=== PATIENT | male | born 1955 | race American Indian/Alaskan Native ===

== ENCOUNTER 2019-01-09 13:37 | Observation (INO) | payer MEDICAID ==
--- NOTE | 2019-01-09 13:56 | Event Note ---
ED Screening Note Date of service: 01/09/19 Time: 13:48 ED Screening Note: Patient reports black and loose stool with abvious blood in stool today x 2 . Cirrhosis of liver and on transplant list. Denies N/V. Abdominal pain generalized queezy pain. 04/26. No vomiting blood. Last EGD at [facility] and reports next endoscopy is 1 year. Colonoscopy 2016 and was normal. NOn alcoholic liver disease. No alcohol or etoh in 24 years. No h/O paracenthesis. No Fever or chill. No urinary symptoms. GI Lan Floyd at [facility] who is part of transplant team Abdomen: obese, NL BS. NTTP VSS AFEB This initial assessment/diagnostic orders/clinical plan/treatment(s) is/are subject to change based on patients health status, clinical progression and re- assessment by fellow clinical providers in the ED. Further treatment and workup at subsequent clinical providers discretion. Patient/guardian urged not to elope from the ED as their condition may be serious if not clinically assessed and managed. Initial orders include: protocol for GI bleed
[2019-01-09 14:53] LABS: Basophils # (Auto) 0.1 K/mm3 (0.0-0.1); Basophils % (Auto) 0.7 % (0.0-1.8); Eosinophils # (Auto) 0.2 K/mm3 (0.0-0.4); Eosinophils % (Auto) 2.1 % (0.0-4.3); Lymphocytes # (Auto) 0.7 K/mm3 (1.2-5.4); Mean Corpuscular HGB Conc 29 % (32-34); Monocytes # (Auto) 0.7 K/mm3 (0.0-0.8); Monocytes % (Auto) 8.2 % (0.0-7.3); Platelet Count 304 K/mm3 (140-440); Red Blood Count 5.44 M/mm3 (3.65-5.03); Red Cell Distribution Width 19.7 % (13.2-15.2)
[2019-01-09 14:58] LABS: Hematocrit 30.8 % (35.5-45.6); Mean Corpuscular Volume 57 fl (84-94)
[2019-01-09 14:59] LABS: Alanine Aminotransferase 11 units/L (7-56); Albumin 3.9 g/dL (3.9-5); BUN/Creatinine Ratio 12; Blood Urea Nitrogen 14 mg/dL (9-20); Calcium 8.5 mg/dL (8.4-10.2); Hemolysis Index 1
[2019-01-09 15:03] LABS: INR 1.1 (0.87-1.13); Partial Thromboplastin Time 30.5 Sec. (24.2-36.6)
[2019-01-09 16:33] LABS: Bilirubin,Urine NEG (Negative); Blood,Urine NEG (Negative); Color,Urine Yellow (Yellow); Mucus,Urine FEW /HPF; Protein,Urine <15 mg/dL mg/dL (Negative)
--- NOTE | 2019-01-09 16:34 | Emergency Department Report ---
ED GI Bleed HPI - General Chief complaint: GI Bleed Stated complaint: GI BLEED Time Seen by Provider: 01/09/19 13:47 Source: patient Mode of arrival: Ambulatory Limitations: No Limitations - History of Present Illness MD complaint: melena -: Gradual, days(s) Radiation: none Severity scale (0 -10): 0 Quality: painless Consistency: intermittent Improves with: none Worsens with: none Context: history of GI bleed (Reports followed by GI at [facility] and that he is on the liver transplant list. Reports Dr. Lan MCKEON performed an EGD in approximately 2010 to cauterize a bleed with similar presentation. ), liver disease (Reports hx of cirrhosis on the transplant list at [facility]) Associated Symptoms: denies: abdominal pain, nausea, vomiting, epistaxis, fever/chills, headaches, loss of appetite, malaise, easy bruising, rash, other bleeding, shortness of breath, syncope, weakness - Related Data Allergies Allergy/AdvReac Type Severity Reaction Status Date / Time No Known Allergies Allergy Unverified 01/09/19 15:04 ED Review of Systems ROS: Stated complaint: GI BLEED Other details as noted in HPI Other: GENERAL: No weight change, fatigue, fever, chills, or night sweats SKIN: No changes in skin or hair, no itching, no rashes, no jaundice HEAD: No trauma, headache, or visual changes EYES: No blurriness, tearing, itching, acute visual loss, conjunctival discoloration, or scleral icterus EARS: No hearing loss, tinnitus, vertigo, or earache NOSE: No rhinorrhea, stuffiness, sneezing, itching, or epistaxis MOUTH: No bleeding gums, hoarseness, sore throat, or swelling CARDIAC: No new murmur, chest pain, palpitations, dyspnea on exertion, orthopnea, PND, or edema RESPIRATORY: No shortness of breath, wheeze, cough, sputum production, hemoptysis, pneumonia, asthma, bronchitis, or emphysema GI: Melena. No change in appetite, nausea, vomiting, dysphagia, diarrhea, constipation, hematemesis, hematochezia, or abdominal pain URINARY: No frequency, urgency, polyuria, dysuria, hematuria, or incontinence MUSCULOSKELETAL: No muscle weakness, joint stiffness, decrease in range of motion, redness, swelling NEUROLOGIC: No headache, syncope, loss of sensation, numbness, tingling, tremors, weakness, paralysis, seizures HEMATOLOGIC: No anemia, easy bruising, bleeding, petechiae, or purpura ENDOCRINE: No hot or cold intolerance, sweating, polyuria, polydipsia or, polyphagia no thyroid problems ED Past Medical Hx - Past Medical History Previous Medical History?: Yes Hx Liver Disease: Yes (cirrhosis of liver) - Surgical History Past Surgical History?: Yes Additional Surgical History: Abdominal hernia repair - Social History Smoking Status: Former Smoker Substance Use Type: Prescribed, Other ED Physical Exam - General Limitations: No Limitations - Other Other exam information: GENERAL: Patient in no acute distress HEAD: Normocephalic, atraumatic EYES: PERRLA, EOM intact, no scleral icterus, no conjunctival hemorrhage, visual flower and acuity wnl NOSE: No tenderness, discharge, sinus tenderness MOUTH: No erythema, bleeding, exudate HEART: Regular rate and rhythm, no murmur, S1-S2 are auscultated, no edema, pulses are symmetric LUNGS: No respiratory distress. Bilateral breath sounds, No tachypnea, No retractions, No wheezing, rales, rhonchi ABDOMEN: Normal bowel sounds, abdomen soft, no tenderness, no rebound, no guarding, no distention, no masses, no CVA tenderness MUSCULOSKELETAL: Normal joint range of motion, no redness, no swelling, no tenderness NEUROLOGIC: GCS 15, Alert and Oriented x3, Cranial nerves intact, normal sensation, normal strength, no cerebellar deficit, NIHSS 0 SKIN: Skin is warm and dry, no wounds, no rashes ED Course Vital Signs 01/09/19 01/09/19 01/09/19 13:40 16:25 18:37 Temperature 98.4 F Pulse Rate 70 70 66 Respiratory 22 20 19 Rate Blood Pressure 149/79 Blood Pressure 138/70 150/89 [Left] O2 Sat by Pulse 97 97 96 Oximetry ED Medical Decision Making - Lab Data Result diagrams: 01/09/19 14:03 01/09/19 14:03 Laboratory Results - last 24 hr 01/09/19 01/09/19 01/09/19 14:03 14:03 14:03 WBC 8.1 RBC 5.44 H Hgb 9.0 L Hct 30.8 L MCV 57 L MCH 17 L MCHC 29 L RDW 19.7 H Plt Count 304 Lymph % (Auto) 9.0 L [place] % (Auto) 8.2 H Eos % (Auto) 2.1 Baso % (Auto) 0.7 Lymph # 0.7 L [place] # 0.7 Eos # 0.2 Baso # 0.1 Seg Neutrophils % 80.0 H Seg Neutrophils # 6.5 PT 14.1 INR 1.10 APTT 30.5 Sodium 139 Potassium 4.4 Chloride 104.5 Carbon Dioxide 23 Anion Gap 16 BUN 14 Creatinine 1.2 Estimated GFR > 60 BUN/Creatinine Ratio 12 Glucose 166 H Calcium 8.5 Magnesium 1.70 Total Bilirubin 0.30 AST 14 ALT 11 Alkaline Phosphatase 147 H Ammonia Total Protein 6.7 Albumin 3.9 Albumin/Globulin Ratio 1.4 Lipase 62 H Urine Color Urine Turbidity Urine pH Ur Specific [place] Urine Protein Urine Glucose (UA) Urine Ketones Urine Blood Urine Nitrite Urine Bilirubin Urine Urobilinogen Ur Leukocyte Esterase Urine WBC (Auto) Urine RBC (Auto) U Epithel Cells (Auto) Urine Mucus Blood Type Antibody Screen 01/09/19 01/09/19 01/09/19 14:03 14:03 16:00 WBC RBC Hgb Hct MCV MCH MCHC RDW Plt Count Lymph % (Auto) [place] % (Auto) Eos % (Auto) Baso % (Auto) Lymph # [place] # Eos # Baso # Seg Neutrophils % Seg Neutrophils # PT INR APTT Sodium Potassium Chloride Carbon Dioxide Anion Gap BUN Creatinine Estimated GFR BUN/Creatinine Ratio Glucose Calcium Magnesium Total Bilirubin AST ALT Alkaline Phosphatase Ammonia 34.0 Total Protein Albumin Albumin/Globulin Ratio Lipase Urine Color Yellow Urine Turbidity Clear Urine pH 5.0 Ur Specific [place] 1.025 Urine Protein <15 mg/dl Urine Glucose (UA) Neg Urine Ketones Neg Urine Blood Neg Urine Nitrite Neg Urine Bilirubin Neg Urine Urobilinogen 4.0 Ur Leukocyte Esterase Sm Urine WBC (Auto) 25.0 H Urine RBC (Auto) 5.0 U Epithel Cells (Auto) < 1.0 Urine Mucus Few Blood Type B POSITIVE Antibody Screen Negative - Medical Decision Making At 1729 Dr. Puga [facility] call back updated with results. Reports there are no ICU beds available at [facility] and would prefer this patient be in an ICU bed. Recommends patient can stay at [facility] for GI evaluation, and [facility] can be available for consultation if there are any further concerns after [facility] initial GI evaluation. Patient comfortable. Reports symptom improvement. Updated with results. Plan admit for further evaluation. Hospitalist updated and accepts admission. Critical care attestation.: If time is entered above; I have spent that time in minutes in the direct care of this critically ill patient, excluding procedure time. ED Disposition Clinical Impression: GI bleed Qualifiers: GI bleed type/associated pathology: unspecified gastrointestinal hemorrhage type Qualified Code(s): K92.2 - Gastrointestinal hemorrhage, unspecified Disposition: [id number] OP ADMIT IP TO THIS HOSP Is pt being admited?: Yes Condition: Stable
[2019-01-09] MEDS ORDERED: ACETAMINOPHEN 325 MG TAB PO PRN ×2 (18:15→21:44)
[2019-01-09] MEDS ORDERED: ONDANSETRON 4 MG/2 ML INJ IV PRN ×2 (18:15→21:44)
[2019-01-09] MEDS ORDERED: HYDROmorphone 1 MG/1 ML INJ IV PRN (21:44)
--- NOTE | 2019-01-09 22:00 | History and Physical Report ---
History of Present Illness Date of examination: 01/09/19 Date of admission: 01/09/19 18:15 Chief complaint: Black stools since yesterday History of present illness: 63 y/o AAM with pmh significant for DAVIS Esophageal varices ,Hx of GI bleed and obesity on Liver transplant list at [place] comes ior Black tarry stools since last night. Feels weak and lightheded. No fever or chills Denies: abdominal pain, nausea, vomiting, epistaxis, headaches, loss of appetite, malaise, easy bruising, rash, other bleeding, shortness of breath, syncope, weakness Past Medical History Previous Medical History?: Yes Hx Liver Disease: Yes (cirrhosis of liver) Surgical History Past Surgical History?: Yes Additional Surgical History: Abdominal hernia repair Social History Smoking Status: Former Smoker Substance Use Type: Prescribed, Other Family Hx Htn Review of Systems ROS: Stated complaint: GI BLEED Other details as noted in HPI Other: GENERAL: No weight change, fatigue, fever, chills, or night sweats SKIN: No changes in skin or hair, no itching, no rashes, no jaundice HEAD: No trauma, headache, or visual changes EYES: No blurriness, tearing, itching, acute visual loss, conjunctival discoloration, or scleral icterus EARS: No hearing loss, tinnitus, vertigo, or earache NOSE: No rhinorrhea, stuffiness, sneezing, itching, or epistaxis MOUTH: No bleeding gums, hoarseness, sore throat, or swelling CARDIAC: No new murmur, chest pain, palpitations, dyspnea on exertion, orthopnea, PND, or edema RESPIRATORY: No shortness of breath, wheeze, cough, sputum production, hemoptysis, pneumonia, asthma, bronchitis, or emphysema GI: Melena. No change in appetite, nausea, vomiting, dysphagia, diarrhea, constipation, hematemesis, hematochezia, or abdominal pain URINARY: No frequency, urgency, polyuria, dysuria, hematuria, or incontinence MUSCULOSKELETAL: No muscle weakness, joint stiffness, decrease in range of motion, redness, swelling NEUROLOGIC: No headache, syncope, loss of sensation, numbness, tingling, tremors, weakness, paralysis, seizures HEMATOLOGIC: No anemia, easy bruising, bleeding, petechiae, or purpura ENDOCRINE: No hot or cold intolerance, sweating, polyuria, polydipsia or, polyphagia no thyroid problems Medications and Allergies Allergies Allergy/AdvReac Type Severity Reaction Status Date / Time No Known Allergies Allergy Unverified 01/09/19 15:04 Home Medications Medication Instructions Recorded Confirmed Last Taken Type AtorvaSTATin [Lipitor] 40 mg PO QHS 01/09/19 01/09/19 Unknown History Docusate Sodium [Stool Softener] 50 mg PO QDAY 01/09/19 01/09/19 Unknown History Pantoprazole [Protonix] 40 mg PO QDAY 01/09/19 01/09/19 Unknown History Tenofovir Alafenamide Fumarate 25 mg PO QDAY 01/09/19 01/09/19 Unknown History [Vemlidy] azaTHIOprine [Imuran] 50 mg PO DAILY 01/09/19 01/09/19 Unknown History Active Meds: Active Medications Acetaminophen (Tylenol) 650 mg PO Q4H PRN PRN Reason: Pain MILD(1-3)/Fever >100.5/KURTZ Acetaminophen (Tylenol) 650 mg PO Q4H PRN PRN Reason: Pain MILD(1-3)/Fever >100.5/KURTZ Hydromorphone HCl (Dilaudid) 0.5 mg IV Q3H PRN PRN Reason: Pain , Severe (7-10) Pantoprazole Sodium 80 mg/ (Sodium Chloride) 100 mls @ 10 mls/hr IV DIRECT ROLANDO Ondansetron HCl (Zofran) 4 mg IV Q8H PRN PRN Reason: Nausea And Vomiting Ondansetron HCl (Zofran) 4 mg IV Q8H PRN PRN Reason: Nausea And Vomiting Sodium Chloride (Sodium Chloride Flush Syringe 10 Ml) 10 ml IV BID ROLANDO Sodium Chloride (Sodium Chloride Flush Syringe 10 Ml) 10 ml IV PRN PRN PRN Reason: LINE FLUSH Sodium Chloride (Sodium Chloride Flush Syringe 10 Ml) 10 ml IV BID ROLANDO Sodium Chloride (Sodium Chloride Flush Syringe 10 Ml) 10 ml IV PRN PRN PRN Reason: LINE FLUSH Exam - Constitutional Vitals: Temp Pulse Resp BP Pulse Ox 98.4 F 65 16 153/93 96 01/09/19 20:18 01/09/19 20:18 01/09/19 20:18 01/09/19 20:18 01/09/19 20:18 General appearance: Present: no acute distress, well-nourished - EENT Eyes: Present: PERRL ENT: hearing intact, clear oral mucosa - Neck Neck: Present: supple, normal ROM - Respiratory Respiratory effort: normal Respiratory: bilateral: CTA - Cardiovascular Heart rate: 88 Rhythm: regular Heart Sounds: Present: S1 & S2. Absent: rub, click - Extremities Extremities: no ischemia, pulses intact, pulses symmetrical, No edema Peripheral Pulses: within normal limits - Abdominal General gastrointestinal: Present: soft, non-tender, distended (Sec to obesity), normal bowel sounds Male genitourinary: Present: normal - Integumentary Integumentary: Present: clear, warm, dry - Musculoskeletal Musculoskeletal: gait normal, strength equal bilaterally - Psychiatric Psychiatric: appropriate mood/affect, intact judgment & insight - Neurologic Neurologic: CNII-XII intact, moves all extremities Results - Labs CBC & Chem 7: 01/09/19 22:54 01/09/19 14:03 Labs: Laboratory Last Values WBC 8.1 K/mm3 (4.5-11.0) 01/09/19 14:03 RBC 5.44 M/mm3 (3.65-5.03) H 01/09/19 14:03 Hgb 9.0 gm/dl (11.8-15.2) L 01/09/19 14:03 Hct 30.8 % (35.5-45.6) L 01/09/19 14:03 MCV 57 fl (84-94) L 01/09/19 14:03 MCH 17 pg (28-32) L 01/09/19 14:03 MCHC 29 % (32-34) L 01/09/19 14:03 RDW 19.7 % (13.2-15.2) H 01/09/19 14:03 Plt Count 304 K/mm3 (140-440) 01/09/19 14:03 Lymph % (Auto) 9.0 % (13.4-35.0) L 01/09/19 14:03 [place] % (Auto) 8.2 % (0.0-7.3) H 01/09/19 14:03 Eos % (Auto) 2.1 % (0.0-4.3) 01/09/19 14:03 Baso % (Auto) 0.7 % (0.0-1.8) 01/09/19 14:03 Lymph # 0.7 K/mm3 (1.2-5.4) L 01/09/19 14:03 [place] # 0.7 K/mm3 (0.0-0.8) 01/09/19 14:03 Eos # 0.2 K/mm3 (0.0-0.4) 01/09/19 14:03 Baso # 0.1 K/mm3 (0.0-0.1) 01/09/19 14:03 Seg Neutrophils % 80.0 % (40.0-70.0) H 01/09/19 14:03 Seg Neutrophils # 6.5 K/mm3 (1.8-7.7) 01/09/19 14:03 PT 14.1 Sec. (12.2-14.9) 01/09/19 14:03 INR 1.10 (0.87-1.13) 01/09/19 14:03 APTT 30.5 Sec. (24.2-36.6) 01/09/19 14:03 Sodium 139 mmol/L (137-145) 01/09/19 14:03 Potassium 4.4 mmol/L (3.6-5.0) 01/09/19 14:03 Chloride 104.5 mmol/L (98-107) 01/09/19 14:03 Carbon Dioxide 23 mmol/L (22-30) 01/09/19 14:03 Anion Gap 16 mmol/L 01/09/19 14:03 BUN 14 mg/dL (9-20) 01/09/19 14:03 Creatinine 1.2 mg/dL (0.8-1.5) 01/09/19 14:03 Estimated GFR > 60 ml/min 01/09/19 14:03 BUN/Creatinine Ratio 12 % 01/09/19 14:03 Glucose 166 mg/dL (75-100) H 01/09/19 14:03 Calcium 8.5 mg/dL (8.4-10.2) 01/09/19 14:03 Magnesium 1.70 mg/dL (1.7-2.3) 01/09/19 14:03 Total Bilirubin 0.30 mg/dL (0.1-1.2) 01/09/19 14:03 AST 14 units/L (5-40) 01/09/19 14:03 ALT 11 units/L (7-56) 01/09/19 14:03 Alkaline Phosphatase 147 units/L (35-129) H 01/09/19 14:03 Ammonia 34.0 umol/L (25-60) 01/09/19 14:03 Total Protein 6.7 g/dL (6.3-8.2) 01/09/19 14:03 Albumin 3.9 g/dL (3.9-5) 01/09/19 14:03 Albumin/Globulin Ratio 1.4 % 01/09/19 14:03 Lipase 62 units/L (13-60) H 01/09/19 14:03 Urine Color Yellow (Yellow) 01/09/19 16:00 Urine Turbidity Clear (Clear) 01/09/19 16:00 Urine pH 5.0 (5.0-7.0) 01/09/19 16:00 Ur Specific [place] 1.025 (1.003-1.030) 01/09/19 16:00 Urine Protein <15 mg/dl mg/dL (Negative) 01/09/19 16:00 Urine Glucose (UA) Neg mg/dL (Negative) 01/09/19 16:00 Urine Ketones Neg mg/dL (Negative) 01/09/19 16:00 Urine Blood Neg (Negative) 01/09/19 16:00 Urine Nitrite Neg (Negative) 01/09/19 16:00 Urine Bilirubin Neg (Negative) 01/09/19 16:00 Urine Urobilinogen 4.0 mg/dL (<2.0) 01/09/19 16:00 Ur Leukocyte Esterase Sm (Negative) 01/09/19 16:00 Urine WBC (Auto) 25.0 /HPF (0.0-6.0) H 01/09/19 16:00 Urine RBC (Auto) 5.0 /HPF (0.0-6.0) 01/09/19 16:00 U Epithel Cells (Auto) < 1.0 /HPF (0-13.0) 01/09/19 16:00 Urine Mucus Few /HPF 01/09/19 16:00 Blood Type B POSITIVE 01/09/19 14:03 Antibody Screen Negative 01/09/19 14:03 Short CBC 01/09/19 01/09/19 Range/Units 14:03 22:54 WBC 8.1 (4.5-11.0) K/mm3 Hgb 9.0 L 8.1 L (11.8-15.2) gm/dl Hct 30.8 L 27.6 L (35.5-45.6) % Plt Count 304 (140-440) K/mm3 BMP 01/09/19 14:03 Sodium 139 Potassium 4.4 Chloride 104.5 Carbon Dioxide 23 BUN 14 Creatinine 1.2 Glucose 166 H Calcium 8.5 Liver Function 01/09/19 Range/Units 14:03 Total Bilirubin 0.30 (0.1-1.2) mg/dL AST 14 (5-40) units/L ALT 11 (7-56) units/L Alkaline Phosphatase 147 H (35-129) units/L Albumin 3.9 (3.9-5) g/dL Urine 01/09/19 Range/Units 16:00 Urine Color Yellow (Yellow) Urine pH 5.0 (5.0-7.0) Ur Specific [place] 1.025 (1.003-1.030) Urine Protein <15 mg/dl (Negative) mg/dL Urine Glucose (UA) Neg (Negative) mg/dL Short CBC 01/09/19 01/09/19 Range/Units 14:03 22:54 WBC 8.1 (4.5-11.0) K/mm3 Hgb 9.0 L 8.1 L (11.8-15.2) gm/dl Hct 30.8 L 27.6 L (35.5-45.6) % Plt Count 304 (140-440) K/mm3 [facility] 01/09/19 14:03 Sodium 139 Potassium 4.4 Chloride 104.5 Carbon Dioxide 23 BUN 14 Creatinine 1.2 Glucose 166 H Calcium 8.5 Liver Function 01/09/19 Range/Units 14:03 Total Bilirubin 0.30 (0.1-1.2) mg/dL AST 14 (5-40) units/L ALT 11 (7-56) units/L Alkaline Phosphatase 147 H (35-129) units/L Albumin 3.9 (3.9-5) g/dL Urine 01/09/19 Range/Units 16:00 Urine Color Yellow (Yellow) Urine pH 5.0 (5.0-7.0) Ur Specific [place] 1.025 (1.003-1.030) Urine Protein <15 mg/dl (Negative) mg/dL Urine Glucose (UA) Neg (Negative) mg/dL Assessment and Plan Advance Directives: Yes (Full code) VTE prophylaxis?: Mechanical Plan of care discussed with patient/family: Yes - Patient Problems (1) GI bleed Current Visit: Yes Status: Acute Qualifiers: GI bleed type/associated pathology: unspecified gastrointestinal hemorrhage type Qualified Code(s): K92.2 - Gastrointestinal hemorrhage, unspecified Plan to address problem: Possible upper GI bleed IV protonix drip GI consult Monitor H/h transfuse if necessary (2) DAVIS (nonalcoholic steatohepatitis) Current Visit: Yes Status: Chronic Plan to address problem: On Liver transplant list at [place] (3) HLD (hyperlipidemia) Current Visit: Yes Status: Chronic Qualifiers: Hyperlipidemia type: mixed hyperlipidemia Qualified Code(s): E78.2 - Mixed hyperlipidemia Plan to address problem: Statins on hold (4) GERD (gastroesophageal reflux disease) Current Visit: Yes Status: Chronic Qualifiers: Esophagitis presence: with esophagitis Qualified Code(s): K21.0 - Gastro- esophageal reflux disease with esophagitis Plan to address problem: On PPI's (5) DVT prophylaxis Current Visit: Yes Status: Acute Plan to address problem: On SCD's
[2019-01-09] MEDS: PANTOPRAZOLE 80 MG in SODIUM CHLORIDE 0.9% 100 ML IV SCH (22:55)
[2019-01-09 23:56] LABS: Hematocrit 27.6 % (35.5-45.6); Hemoglobin 8.1 gm/dl (11.8-15.2)
[2019-01-10 06:25] LABS: Hematocrit 27.1 % (35.5-45.6); Hemoglobin 8.3 gm/dl (11.8-15.2); Mean Corpuscular HGB Conc 31 % (32-34); Mean Corpuscular Volume 56 fl (84-94); Mean Platelet Volume 8.4 fl (6-12); Platelet Count 286 K/mm3 (140-440); Red Blood Count 4.87 M/mm3 (3.65-5.03); Red Cell Distribution Width 20.3 % (13.2-15.2)
[2019-01-10 06:35] LABS: Alanine Aminotransferase 10 units/L (7-56); Albumin 3.7 g/dL (3.9-5); BUN/Creatinine Ratio 16; Blood Urea Nitrogen 16 mg/dL (9-20); Calcium 8.3 mg/dL (8.4-10.2); Hemolysis Index 0
[2019-01-10] MEDS: PANTOPRAZOLE 80 MG in SODIUM CHLORIDE 0.9% 100 ML IV SCH ×2 (07:17→17:57)
[2019-01-10 08:46] LABS: Basophils % (Manual) 0 % (0.0-1.8); Eosinophils % (Manual) 0 % (0.0-4.3); Total Cells Counted 100
[2019-01-10 08:47] LABS: Anisocytosis 1+; Hypochromasia 2+; Ovalocytes 1+; Platelet Estimate Consistent w Auto; Poikilocytosis Few
[2019-01-10] MEDS ORDERED: FLU VACC QUAD 2019-20 (3 YR UP)/PF 60 MCG/0.5 ML SYRINGE IM ONE (12:00)
--- NOTE | 2019-01-10 14:54 | Consultation ---
History of Present Illness - Reason for Consult Consult date: 01/10/19 GI bleed Requesting physician: MIREYA SCHWARZ - History of Present Illness Mr. Orellana is a 63-year-old man who does not emergency transport. He was in his usual state of good health until the night of January 08 when he noted that he had a loose black bowel movement. Because of a prior history of bleeding in 2016, he presented to the emergency room and was found to be profoundly anemic. He was admitted for further evaluation, and GI consultation is obtained. Mr. Orellana has a history of Aviles and states he has cirrhosis and is followed by Dr. Lan Floyd at [facility] since 2016. He states that his meld score was initially 30 in 2016 but has recently been staying low at 10. He has been doing well. He notes that in 2016, he had some sort of a bleeding episode and Dr. Floyd went down his throat and cauterized something, but he does not know what. Of note, patient is on Vemlidy now and was on tenofovir previously. He is not aware of any diagnosis of viral hepatitis. Since the initial episode, he has had no further bowel movements. He denies any abdominal pain nausea or vomiting. There's been no hematemesis. He has no history of ascites or clearly documented varices as far as we know. He denies aspirin or nonsteroidal usage. Patient does not know what his baseline blood work is, and states he was last seen at [facility] approximately 2 months ago. Past History Past Medical History: other (AVILES with cirrhosis) Past Surgical History: No surgical history Social history: denies: smoking, alcohol abuse Family history: no significant family history Medications and Allergies Allergies Allergy/AdvReac Type Severity Reaction Status Date / Time No Known Allergies Allergy Unverified 01/09/19 15:04 Home Medications Medication Instructions Recorded Confirmed Last Taken Type AtorvaSTATin [Lipitor] 40 mg PO QHS 01/09/19 01/09/19 Unknown History Docusate Sodium [Stool Softener] 50 mg PO QDAY 01/09/19 01/09/19 Unknown History Pantoprazole [Protonix] 40 mg PO QDAY 01/09/19 01/09/19 Unknown History Tenofovir Alafenamide Fumarate 25 mg PO QDAY 01/09/19 01/09/19 Unknown History [Vemlidy] azaTHIOprine [Imuran] 50 mg PO DAILY 01/09/19 01/09/19 Unknown History Active Meds: Active Medications Acetaminophen (Tylenol) 650 mg PO Q4H PRN PRN Reason: Pain MILD(1-3)/Fever >100.5/KURTZ Hydromorphone HCl (Dilaudid) 0.5 mg IV Q3H PRN PRN Reason: Pain , Severe (7-10) Pantoprazole Sodium 80 mg/ (Sodium Chloride) 100 mls @ 10 mls/hr IV DIRECT ROLANDO Last Admin: 01/10/19 07:17 Dose: 8 mg/hr, 10 mls/hr Documented by: Ondansetron HCl (Zofran) 4 mg IV Q8H PRN PRN Reason: Nausea And Vomiting Sodium Chloride (Sodium Chloride Flush Syringe 10 Ml) 10 ml IV BID [facility] Last Admin: 01/09/19 22:50 Dose: 10 ml Documented by: Sodium Chloride (Sodium Chloride Flush Syringe 10 Ml) 10 ml IV PRN PRN PRN Reason: LINE FLUSH Review of Systems All systems: negative (as noted above) Exam - Constitutional Vitals: Temp Pulse Resp BP Pulse Ox 98.3 F 61 18 136/73 93 01/10/19 12:04 01/10/19 12:04 01/10/19 12:04 01/10/19 12:04 01/10/19 12:04 General appearance: Present: no acute distress, other (Morbidly obese) - EENT Eyes: Present: PERRL, EOM intact ENT: hearing intact - Neck Neck: Present: supple - Respiratory Respiratory effort: normal Respiratory: bilateral: CTA - Cardiovascular Rhythm: regular Heart Sounds: Present: S1 & S2 - Extremities Extremities: No edema - Abdominal General gastrointestinal: Present: soft, non-tender - Rectal Rectal Exam: other (No masses, dark red stool) Results - Labs CBC & Chem 7: 01/10/19 05:05 01/10/19 05:05 Labs: Abnormal lab results 01/09/19 01/09/19 01/09/19 Range/Units 14:03 14:03 16:00 RBC 5.44 H (3.65-5.03) M/mm3 Hgb 9.0 L (11.8-15.2) gm/dl Hct 30.8 L (35.5-45.6) % MCV 57 L (84-94) fl MCH 17 L (28-32) pg MCHC 29 L (32-34) % RDW 19.7 H (13.2-15.2) % Lymph % (Auto) 9.0 L (13.4-35.0) % [place] % (Auto) 8.2 H (0.0-7.3) % Lymph # 0.7 L (1.2-5.4) K/mm3 Seg Neutrophils % 80.0 H (40.0-70.0) % Seg Neuts % (Manual) (40.0-70.0) % Lymphocytes % (Manual) (13.4-35.0) % Lymphocytes # (Manual) (1.2-5.4) K/mm3 Glucose 166 H (75-100) mg/dL Hemoglobin A1c (4-6) % Calcium (8.4-10.2) mg/dL Alkaline Phosphatase 147 H (35-129) units/L Albumin (3.9-5) g/dL Lipase 62 H (13-60) units/L Urine WBC (Auto) 25.0 H (0.0-6.0) /HPF 01/09/19 01/09/19 01/10/19 Range/Units 22:54 22:54 05:05 RBC (3.65-5.03) M/mm3 Hgb 8.1 L 8.3 L (11.8-15.2) gm/dl Hct 27.6 L 27.1 L (35.5-45.6) % MCV 56 L (84-94) fl MCH 17 L (28-32) pg MCHC 31 L (32-34) % RDW 20.3 H (13.2-15.2) % Lymph % (Auto) (13.4-35.0) % [place] % (Auto) (0.0-7.3) % Lymph # (1.2-5.4) K/mm3 Seg Neutrophils % (40.0-70.0) % Seg Neuts % (Manual) 83.0 H (40.0-70.0) % Lymphocytes % (Manual) 13.0 L (13.4-35.0) % Lymphocytes # (Manual) 1.1 L (1.2-5.4) K/mm3 Glucose (75-100) mg/dL Hemoglobin A1c 7.8 H (4-6) % Calcium (8.4-10.2) mg/dL Alkaline Phosphatase (35-129) units/L Albumin (3.9-5) g/dL Lipase (13-60) units/L Urine WBC (Auto) (0.0-6.0) /HPF 01/10/19 Range/Units 05:05 RBC (3.65-5.03) M/mm3 Hgb (11.8-15.2) gm/dl Hct (35.5-45.6) % MCV (84-94) fl MCH (28-32) pg MCHC (32-34) % RDW (13.2-15.2) % Lymph % (Auto) (13.4-35.0) % [place] % (Auto) (0.0-7.3) % Lymph # (1.2-5.4) K/mm3 Seg Neutrophils % (40.0-70.0) % Seg Neuts % (Manual) (40.0-70.0) % Lymphocytes % (Manual) (13.4-35.0) % Lymphocytes # (Manual) (1.2-5.4) K/mm3 Glucose 116 H (75-100) mg/dL Hemoglobin A1c (4-6) % Calcium 8.3 L (8.4-10.2) mg/dL Alkaline Phosphatase (35-129) units/L Albumin 3.7 L (3.9-5) g/dL Lipase (13-60) units/L Urine WBC (Auto) (0.0-6.0) /HPF Assessment and Plan 1. GI bleed - etiology unclear. Patient appears to be having a lower GI bleed though certainly could be upper source as well. He only reports one episode in the last 36 hours. This is not consistent with what one would expect with a significant upper GI source of bleeding such as varices. He is unlikely to have portal hypertension given the normal liver enzymes as well as normal platelet count. - Monitor H&H and transfuse as needed - Proceed with upper endoscopy and colonoscopy tomorrow - Impaired proton pump inhibitors. - check PT/INR 2. Anemiamicrocytic. MCV is 56, which is profoundly microcytic. This may be due to an underlying hemoglobinopathy, or due to chronic iron deficiency anemia that has developed over a long period of time. I do not think Imuran would have this kind of an effect, if the patient is truly on it. - Check iron levels - Try and get baseline labs 3. Liver disease- patient states he has Aviles, but he is also on antiviral therapy for hepatitis B. If he truly has cirrhosis, his lab work is excellent with normal liver enzymes and a normal platelet count. - Try and get records from [facility].
[2019-01-10] MEDS ORDERED: POLYETHYLENE GLYCOL/ELECT SOLN 4000 ML PO ONE ×2 (15:01→18:00)
--- NOTE | 2019-01-10 15:21 | Progress Note ---
Assessment and Plan 63 y/o AAM with pmh significant for DAVIS Esophageal varices ,Hx of GI bleed and obesity on Liver transplant list at [place] presented emergency Department on account of passing Black tarry stools once last night. Feels weak and lighthhea dness. No fever or chills Denies: abdominal pain, nausea, vomiting, epistaxis, headaches, loss of appetite, malaise, easy bruising, rash, other bleeding, shortness of breath, syncope, weakness = GI bleed - etiology unclear. Patient appears to be having a lower GI bleed though certainly could be upper source as well. He only reports one episode in the last 36 hours. - Monitor H&H and transfuse as needed -For upper endoscopy and colonoscopy tomorrow -Continue with proton pump inhibitors. - check PT/INR = Anemiamicrocytic. From GI bleed. MCV is 56, which is profoundly microcytic. This may be due to an underlying hemoglobinopathy, or due to chronic iron deficiency anemia that has developed over a long period of time. I do not think Imuran would have this kind of an effect, if the patient is truly on it. - Follow up with iron levels = Davis Avoid hepatotoxic meds- On liver transplant list at [place] = GERD Continue PPI = Diabetes mellitus - 2 A1c was 7.8 Consistent divided diet Sliding scale insulin Commence oral anti-diabetics Obtain lipid levels = DVT prophylaxis with SCDs only Avoid anticoagulation because of GI bleeding = CODE STATUS: Patient is full code Disposition: Hospital course and findings on upper and lower endoscopy Subjective Date of service: 01/10/19 Principal diagnosis: GI bleeding with anemia, Interval history: Patient is seen and examined. Sitting up in bed. No more GI bleeding Objective - Exam Narrative Exam: Constitutional: Well-nourished well-developed. In no distress Head: Normocephalic atraumatic Eyes: Pupils are equal round and reactive to light Nose: No enlarged turbinates, no septal deviation. Mouth: Moist mucous membranes. Neck: Supple no thyromegaly. No bruit. No JVD Heart: Regular rate and rhythm, S1-S2 normal. No rubs murmurs or gallop Lungs: Clear to auscultation bilaterally. no rales or rhonchi Abdomen: Soft, nontender. Bowel sound are present. Extremities: No edema, no cyanosis, no clubbing. Neuro: Alert oriented Oriented x3. No focal sensory or motor deficit. Skin: No rashes or hyperpigmented spots Musculoskeletal system: No joint pain or swelling Hematological: No petechia or subcutanous hemorrhages. Immunological: No multiple septic spots on the skin Lymphatic: No generalized lymphadenopathy Psychiatry: Euthymic. Calm. - Constitutional Vitals: Vital Signs - 12hr 01/10/19 01/10/19 01/10/19 04:32 05:00 08:12 Temperature 98.6 F 98.2 F Pulse Rate 60 61 Respiratory 16 18 Rate Blood Pressure 120/64 129/63 O2 Sat by Pulse 96 Oximetry 01/10/19 12:04 Temperature 98.3 F Pulse Rate 61 Respiratory 18 Rate Blood Pressure 136/73 O2 Sat by Pulse 93 Oximetry - Labs CBC & Chem 7: 01/10/19 05:05 01/10/19 05:05 Labs: Abnormal lab results 01/09/19 01/09/19 01/09/19 Range/Units 16:00 22:54 22:54 Hgb 8.1 L (11.8-15.2) gm/dl Hct 27.6 L (35.5-45.6) % MCV (84-94) fl MCH (28-32) pg MCHC (32-34) % RDW (13.2-15.2) % Seg Neuts % (Manual) (40.0-70.0) % Lymphocytes % (Manual) (13.4-35.0) % Lymphocytes # (Manual) (1.2-5.4) K/mm3 Glucose (75-100) mg/dL Hemoglobin A1c 7.8 H (4-6) % Calcium (8.4-10.2) mg/dL Albumin (3.9-5) g/dL Urine WBC (Auto) 25.0 H (0.0-6.0) /HPF 01/10/19 01/10/19 Range/Units 05:05 05:05 Hgb 8.3 L (11.8-15.2) gm/dl Hct 27.1 L (35.5-45.6) % MCV 56 L (84-94) fl MCH 17 L (28-32) pg MCHC 31 L (32-34) % RDW 20.3 H (13.2-15.2) % Seg Neuts % (Manual) 83.0 H (40.0-70.0) % Lymphocytes % (Manual) 13.0 L (13.4-35.0) % Lymphocytes # (Manual) 1.1 L (1.2-5.4) K/mm3 Glucose 116 H (75-100) mg/dL Hemoglobin A1c (4-6) % Calcium 8.3 L (8.4-10.2) mg/dL Albumin 3.7 L (3.9-5) g/dL Urine WBC (Auto) (0.0-6.0) /HPF
[2019-01-10 16:09] LABS: Hematocrit 27.2 % (35.5-45.6); Hemoglobin 8.2 gm/dl (11.8-15.2)
[2019-01-11] MEDS: PANTOPRAZOLE 80 MG in SODIUM CHLORIDE 0.9% 100 ML IV SCH (04:04)
[2019-01-11] MEDS ORDERED: SODIUM CHLORIDE 0.9% 1000 ML 1,000 ML ONE (08:25)
--- NOTE | 2019-01-11 08:29 | Anesthesia Consultation ---
Anesthesia Consult and Med Hx Date of service: 01/11/19 - Airway Anesthetic Teeth Evaluation: Edentulous (edentulous upper, partial lower) ROM Head & Neck: Adequate Mental/Hyoid Distance: Inadequate Mallampati Class: Class III Intubation Access Assessment: Possibly Difficult - Pulmonary Exam CTA: Yes - Cardiac Exam Cardiac Exam: RRR - Pre-Operative Health Status ASA Pre-Surgery Classification: ASA3 Proposed Anesthetic Plan: MAC - Pulmonary Hx Smoking: Yes (quit 24yrs ago) Hx Respiratory Symptoms: No - Cardiovascular System Hx Hypertension: No Hx Heart Attack/AMI: No Hx Percutaneous Transluminal Coronary Angioplasty (PTCA): No Hx Cardia Arrhythmia: No - Central Nervous System Hx Seizures: No CVA: No - Gastrointestinal Hx Gastroesophageal Reflux Disease: No - Endocrine Hx Renal Disease: No Hx Cirrhosis: Yes (transplant eval ongoing with [facility]; no hx ascites, encephalopathy, or varices) Hx Liver Disease: Yes (questionable hx of hepatitis) Hx Insulin Dependent Diabetes: No Hx Non-Insulin Dependent Diabetes: No Hx Thyroid Disease: No - Hematic Hx Anemia: Yes - Other Systems Hx Alcohol Use: Yes (last use 24yrs ago) Hx Substance Use: Yes (last use 24yrs ago) Hx Obesity: Yes (BMI 51)
[2019-01-11] MEDS ORDERED: KETAMINE/STERILE WATER 50 MG/ML SYRINGE ONE (08:30)
--- NOTE | 2019-01-11 08:30 | Anesthesia Day of Surgery ---
Anesthesia Day of Surgery - Day of Surgery Patient Examined: Yes Patient H&P Reviewed: Yes Patient is NPO: Yes
--- NOTE | 2019-01-11 09:29 | Post Operative Note ---
Pre-op diagnosis: Hematochezia Post-op diagnosis: other (Normal EGD. Colonic diverticulosis. No blood noted.) Findings: 1. Normal EGD, no varices. 2. Diffuse colonic diverticulosis, moderate. 3. Otherwise normal colonoscopy, with no mass lesions, vascular lesions, or inflammation. 4. No blood noted, and brown stool debris noted. Procedure: EGD, Colonoscopy Anesthesia: MAC Surgeon: VIKTORIYA VERDUGO Estimated blood loss: none Pathology: none Condition: stable Disposition: floor (1. Adv diet. 2. If H/H stable, may D/C to home with f/u with [facility]. 3. Replete iron if low.)
[2019-01-11] MEDS ORDERED: fentaNYL 100 MCG/2 ML INJ ONE (09:50)
[2019-01-11] MEDS ORDERED: PROPOFOL 200 MG/20 ML VIAL IV ONE ×3 (09:51)
--- NOTE | 2019-01-11 10:02 | Operative Report ---
PROCEDURE: Upper endoscopy and colonoscopy. PREOPERATIVE DIAGNOSES: Hematochezia and anemia. POSTOPERATIVE DIAGNOSES: Normal upper endoscopy and diffuse colonic diverticulosis with no evidence of bleeding source and no active bleeding noted. SEDATION: MAC by Anesthesia. HISTORY: The patient is a 63-year-old man who presented with hematochezia with dark red stool noted on rectal exam. He came in with a hemoglobin of 9.0, which stabilized at 8.2 after hydration. His MCV was 56. He has a history of liver disease, but his liver enzymes and platelet count are completely normal. He is not aware of any history of anemia. DESCRIPTION OF PROCEDURE: Indications, risks, and benefits were explained, and consent was obtained. The patient was placed in left lateral decubitus position and sedated. Video upper endoscope was passed through the mouth and oropharynx into the descending duodenum and then gradually withdrawn with close inspection of mucosa. Subsequently, the patient was rotated and a colonoscopy was performed. Video colonoscope was passed through the rectum after digital examination and passed with minimal difficulty to the cecum, which was identified by the ileocecal valve and the appendiceal orifice. Scope was then gradually withdrawn with close inspection of the mucosa. Prep was good. FINDINGS: 1. Normal esophagus with sharp Z-line located at 45 cm from the incisors. No varices or inflammation noted. 2. Normal appearing gastric antrum, fundus, body, and cardia with no evidence of portal gastropathy, ulcers, or bleeding source. 3. Normal appearing duodenal bulb and duodenum with no bleeding source or stigmata identified. 4. [id number] diverticulosis with diverticula noted, scattered throughout the whole colon. 5. Remainder of visualized colonic mucosa is normal appearing with no evidence of mass lesions, vascular lesions or inflammation. 6. No blood was identified. There was even a speck of solid brown stool noted. The patient tolerated both procedures well without immediate complications. IMPRESSION: 1. Normal upper endoscopy with no evidence of portal hypertension. 2. [id number] colonic diverticulosis - likely source of bleeding. 3. Otherwise, normal colonoscopy. PLAN: 1. Check iron levels and H and H, and if stable, may discharge to home with outpatient followup with [facility]. 2. If iron low, initiate oral iron. [facility]# [id number] HRC/NTS
[2019-01-11 10:21] VITALS: BP 120/71
[2019-01-11 10:23] LABS: Hematocrit 27.8 % (35.5-45.6); Hemoglobin 8.2 gm/dl (11.8-15.2)
--- NOTE | 2019-01-11 10:31 | Post Anesthesia Evaluation ---
- Post Anesthesia Evaluation Patient Participated: Yes Airway Patent: Yes Stable Respiratory Function: Yes Nausea/Vomiting: No Temp > 96.8F: Yes Pain Manageable: Yes Adequeate Hydration: Yes Anesthesia Complications: No
[2019-01-11 10:48] LABS: Iron 21 ug/dL (49-181); Total Iron Binding Capacity 466 mcg/dL (250-450)
[2019-01-11] MEDS ORDERED: FLU VACC QUAD 2019-20 (3 YR UP)/PF 60 MCG/0.5 ML SYRINGE IM ONE (12:00)
--- NOTE | 2019-01-11 12:03 | Progress Note ---
Subjective Date of service: 01/11/19 Principal diagnosis: GI bleeding with anemia, Interval history: Pt been discharged. See discharge summary. Objective - Constitutional Vitals: Vital Signs - 12hr 01/11/19 01/11/19 01/11/19 03:38 05:00 07:31 Temperature 98.7 F 98.5 F Pulse Rate 82 82 69 Respiratory 16 18 Rate Blood Pressure 149/93 134/82 O2 Sat by Pulse 91 92 Oximetry 01/11/19 01/11/19 01/11/19 08:49 09:25 09:40 Temperature 98.8 F 98.7 F Pulse Rate 74 78 68 Respiratory 15 13 16 Rate Blood Pressure 140/84 99/42 120/71 O2 Sat by Pulse 96 95 98 Oximetry - Labs CBC & Chem 7: 01/11/19 10:12 01/10/19 05:05 Labs: Abnormal lab results 01/10/19 01/11/19 01/11/19 Range/Units 14:29 10:12 10:12 Hgb 8.2 L 8.2 L (11.8-15.2) gm/dl Hct 27.2 L 27.8 L (35.5-45.6) % Iron 21 L (49-181) ug/dL TIBC 466 H (250-450) mcg/dL
--- NOTE | 2019-01-11 15:25 | Discharge Summary ---
Providers - Providers Date of Admission: 01/09/19 18:15 Date of discharge: 01/11/19 Attending physician: COLBY MERCADO 01/09/19 21:44 Consult to Physician [CONS] Routine Comment: Consulting Provider: AKIN ARAIZA Physician Instructions: Reason For Exam: GI bleed Primary care physician: VIRGIE MENSAH Hospitalization Reason for admission: GI bnleeding Condition: Stable Pertinent studies: none Procedures: Had EGD that showed no esophageal varices Had colonoscopy that showed multiple diverticulosis without diverticulitis Hospital course: 63 y/o AAM with pmh significant for DAVIS Esophageal varices, Hx of GI bleed and obesity on Liver transplant list at [place] comes ior Black tarry stools since last night. Feels weak and lightheded. No fever or chills. Denies: abdominal pain, nausea, vomiting, epistaxis, headaches, loss of appetite, malaise, easy bruising, rash, other bleeding, shortness of breath, syncope, weakness. On admission patient was placed on nothing by mouth, IV hydration, IV Protonix. GI consult was obtained. EGD was done. No esophageal varices identified. Colonoscopy was done. Diverticulosis identified without diverticulitits. Had no more GI bleeding. Weakness and lightheadedness resolved. Patient was discharged to follow-up gastroenterologists as well as PCP in 7 days on 3 days respectively. Disposition: - TO HOME OR SELFCARE Exam - Physical Exam Narrative exam: Constitutional: Well-nourished well-developed. In no distress Head: Normocephalic atraumatic Eyes: Pupils are equal round and reactive to light Nose: No enlarged turbinates, no septal deviation. Mouth: Moist mucous membranes. Neck: Supple no thyromegaly. No bruit. No JVD Heart: Regular rate and rhythm, S1-S2 normal. No rubs murmurs or gallop Lungs: Clear to auscultation bilaterally. no rales or rhonchi Abdomen: Soft, nontender. Bowel sound are present. Extremities: No edema, no cyanosis, no clubbing. Neuro: Alert oriented Oriented x3. No focal sensory or motor deficit. Skin: No rashes or hyperpigmented spots Musculoskeletal system: No joint pain or swelling Hematological: No petechia or subcutanous hemorrhages. Immunological: No multiple septic spots on the skin Lymphatic: No generalized lymphadenopathy Psychiatry: Euthymic. Calm. - Constitutional Vitals: Temp Pulse Resp BP Pulse Ox 98.7 F 68 16 120/71 98 01/11/19 09:25 01/11/19 09:40 01/11/19 09:40 01/11/19 09:40 01/11/19 09:40 Plan Activity: advance as tolerated Weight Bearing Status: Weight Bear as Tolerated Diet: low salt Follow up with: PRIMARY CAREMD [Referring] - 3-5 Days VIKTORIYA VERDUGO MD [Staff Physician] - 7 Days Prescriptions: AtorvaSTATin [Lipitor] 40 mg PO QHS #30 Pantoprazole [Protonix TAB] 40 mg PO QDAY #30 Pantoprazole [Protonix] 40 mg PO QDAY #30 tablet
== END 2019-01-11 18:25 | disposition home or self-care (01) ==
LOC: ED 13:37 → 4A 18:15
PROVIDERS: ADMIT Internal Medicine; ATTEND Family Medicine
DX: K92.2 Gastrointestinal hemorrhage, unspecified (principal); K92.1 Melena; D64.9 Anemia, unspecified; K75.81 Nonalcoholic steatohepatitis (NASH); E78.5 Hyperlipidemia, unspecified; K21.9 Gastro-esophageal reflux disease without esophagitis; E11.9 Type 2 diabetes mellitus without complications; Z87.891 Personal history of nicotine dependence; Z98.890 Other specified postprocedural states
CPT/HCPCS: 36415; 43235; 45378; 80053; 81001; 82140; 82270; 83036; 83550; 83690; 83735; 85007; 85014; 85018; 85025; 85610; 85730; 86850; 86900; 86901; 87045; 87086; 90686; 96365; 96366; 99284; C9113; G0378; J2704; J3010; J7030